=== PATIENT | male | born 1950 | race American Indian/Alaskan Native ===

== ENCOUNTER 2017-11-29 09:43 | Outpatient (REF) | payer OTHER | END 2017-12-03 | LOC: M LAB REF 09:43 | DX: D23.12 Other benign neoplasm of skin of left eyelid, including canthus (principal) | CPT/HCPCS: 88305 ==

== ENCOUNTER → 2019-04-03 | Outpatient (REF) | payer OTHER | LOC: M LAB LCGH 10:33 | PROVIDERS: ATTEND Pathology Cytopathology | DX: D22.5 Melanocytic nevi of trunk (principal) ==

== ENCOUNTER → 2019-04-03 | Outpatient (REF) | LOC: M LAB LCGH 15:15 | PROVIDERS: ATTEND Family Medicine | DX: D22.5 Melanocytic nevi of trunk (principal) ==

== ENCOUNTER → 2024-08-27 | Outpatient (CLI) | payer MEDICARE | LOC: M PLALAB 11:22 | PROVIDERS: ATTEND Nurse Practitioner Family | DX: R97.20 Elevated prostate specific antigen [PSA] (principal) ==

== ENCOUNTER → 2025-03-12 | Outpatient (CLI) | payer MEDICARE | LOC: M PLALAB 10:02 | PROVIDERS: ATTEND Nurse Practitioner Family | DX: R97.20 Elevated prostate specific antigen [PSA] (principal) ==